=== PATIENT | male | born 1950 | race Caucasian/White ===

== ENCOUNTER → 2016-06-21 | Outpatient (CLI) | payer OTHER | LOC: HEART CORB 06-16 08:45 | DX: R07.2 Precordial pain (principal); I25.10 Atherosclerotic heart disease of native coronary artery without angina pectoris; I95.9 Hypotension, unspecified; I25.5 Ischemic cardiomyopathy | CPT/HCPCS: 78452; A9502; J2785 ==

== ENCOUNTER 2020-06-26 15:35 | Observation (INO) | payer OTHER ==
[~2020-06-26] VITALS: Ht 165.1 cm; Wt 99.8 kg
[2020-06-26 17:03] LABS: HEMOGLOBIN 15.1 gm/dl (14.0-17.5); RED BLOOD COUNT 4.75 M/UL (4.20-5.50); WHITE BLOOD COUNT 9.2 K/UL (4.5-11.0)
[2020-06-26 17:25] LABS: BUN/CREATININE RATIO 17 (0-10)
[2020-06-27] MEDS ORDERED: PRAVASTATIN SOD40 MG PO (10:34)
[2020-06-27] MEDS ORDERED: ISOSORBIDE MON120 MG PO (10:34)
[2020-06-27] MEDS ORDERED: LISINOPRIL5 MG PO (10:35)
[2020-06-27] MEDS ORDERED: ALDACTONE 25MG25 MG PO (10:35)
[2020-06-27] MEDS ORDERED: METOPROLOL SUCC50 MG PO (10:35)
[2020-06-27] MEDS ORDERED: BAYER CHEWABLE81 MG PO (10:36)
[2020-06-27] MEDS ORDERED: CLOPIDOGREL75 MG PO (10:36)
[2020-06-27] MEDS ORDERED: GLUCOPHAGE 500500 MG PO (10:37)
[2020-06-28 03:26] LABS: BUN/CREATININE RATIO 19 (0-10)
[2020-06-28 03:27] LABS: HEMOGLOBIN 17.5 gm/dl (14.0-17.5); RED BLOOD COUNT 5.52 M/UL (4.20-5.50); WHITE BLOOD COUNT 11.8 K/UL (4.5-11.0)
== END 2020-06-28 17:00 | disposition home or self-care (01) ==
LOC: ER1 15:35 → CDU 20:09 → M/S 20:09 → PROG CARE 06-27 16:32
PROVIDERS: Internal Medicine Interventional Cardiology; ADMIT Internal Medicine
DX: I25.110 Atherosclerotic heart disease of native coronary artery with unstable angina pectoris (principal); I11.0 Hypertensive heart disease with heart failure; I50.22 Chronic systolic (congestive) heart failure; I71.4 Abdominal aortic aneurysm, without rupture; E11.9 Type 2 diabetes mellitus without complications; I25.5 Ischemic cardiomyopathy; I63.9 Cerebral infarction, unspecified; F17.210 Nicotine dependence, cigarettes, uncomplicated; I44.7 Left bundle-branch block, unspecified; I25.2 Old myocardial infarction; E78.5 Hyperlipidemia, unspecified; E66.9 Obesity, unspecified; Z95.5 Presence of coronary angioplasty implant and graft; Z79.82 Long term (current) use of aspirin; Z79.4 Long term (current) use of insulin; Z79.899 Other long term (current) drug therapy; Z20.822 Contact with and (suspected) exposure to COVID-19
CPT/HCPCS: 36415; 71045; 80048; 80053; 80061; 82550; 82553; 82962; 83036; 83735; 83874; 84484; 85025; 85027; 85347; 92920; 93005; 99285; C1725; C1760; C1769; C1874; C1887; C9600; G0378; J0461; J1644; J2250; J3010; Q9963; Q9967; U0002

== ENCOUNTER 2020-07-23 17:45 | Observation (INO) | payer OTHER ==
[~2020-07-23] VITALS: Ht 165.1 cm; Wt 101.2 kg
[~2020-07-23 17:45] MED LIST: ALDACTONE 25MG25 MG PO; BAYER CHEWABLE81 MG PO; CLOPIDOGREL75 MG PO; GLUCOPHAGE 500500 MG PO; ISOSORBIDE MON120 MG PO; LISINOPRIL5 MG PO; METOPROLOL SUCC50 MG PO; PRAVASTATIN SOD40 MG PO
[2020-07-23 18:27] LABS: RED BLOOD COUNT 4.72 M/UL (4.20-5.50); WHITE BLOOD COUNT 8.7 K/UL (4.5-11.0)
[2020-07-23 18:49] LABS: BUN/CREATININE RATIO 18 (0-10)
[2020-07-24] MEDS ORDERED: RANEXA500 MG PO (11:40)
--- NOTE | 2020-07-24 12:25 | NUR ---
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 TAKE DIRECTED. CONTINUE ALL MEDS ORDERED. KEEP FOLLOW UP APPOINTMENT WITH FAISAL NEWTON CLINICAL DATA MANAGEMENT DIRECTOR IN [place] SCHEDULED FOR July. VERBALIZED UNDERSTANDING . LARON KEATING R.N
== END 2020-07-24 15:50 | disposition home or self-care (01) ==
LOC: ER1 17:45 → MED SURG 4 20:11 → CDU 20:11 → MED SURG 4 22:44
PROVIDERS: Physician Assistant; ADMIT Internal Medicine
DX: I25.118 Atherosclerotic heart disease of native coronary artery with other forms of angina pectoris (principal); I11.0 Hypertensive heart disease with heart failure; I50.22 Chronic systolic (congestive) heart failure; I44.7 Left bundle-branch block, unspecified; E11.9 Type 2 diabetes mellitus without complications; F17.220 Nicotine dependence, chewing tobacco, uncomplicated; I25.5 Ischemic cardiomyopathy; R00.1 Bradycardia, unspecified; E78.5 Hyperlipidemia, unspecified; E66.9 Obesity, unspecified; Z68.37 Body mass index [BMI] 37.0-37.9, adult; Z20.822 Contact with and (suspected) exposure to COVID-19; Z95.5 Presence of coronary angioplasty implant and graft; Z86.73 Personal history of transient ischemic attack (TIA), and cerebral infarction without residual deficits; Z79.82 Long term (current) use of aspirin; Z79.02 Long term (current) use of antithrombotics/antiplatelets; Z79.84 Long term (current) use of oral hypoglycemic drugs; Z79.899 Other long term (current) drug therapy
CPT/HCPCS: ECHO; 36415; 71045; 80053; 82550; 82553; 82962; 83874; 83880; 84484; 85025; 93005; 93306; 99285; G0378; U0002

== ENCOUNTER 2020-12-16 15:11 | Observation (INO) | payer OTHER ==
[~2020-12-16] VITALS: Ht 165.1 cm; Wt 103.0 kg
[~2020-12-16 15:11] MED LIST changes: -ISOSORBIDE MON120 MG PO; +ISOSORBIDE MONO60 MG PO; -METOPROLOL SUCC50 MG PO; +METOPROLOL TART50 MG PO; +RANEXA500 MG PO
[2020-12-16 16:28] LABS: HEMOGLOBIN 14.6 gm/dl (14.0-17.5); RED BLOOD COUNT 4.58 M/UL (4.20-5.50); WHITE BLOOD COUNT 10.1 K/UL (4.5-11.0)
[2020-12-16 16:55] LABS: BUN/CREATININE RATIO 15 (0-10)
[2020-12-16] MEDS ORDERED: AMITRIPTYLINE H25 MG PO (18:06)
[2020-12-16] MEDS ORDERED: CANDICIDAL CAP1 EACH PO (18:07)
[2020-12-16] MEDS ORDERED: RANEXA500 MG PO (18:07)
--- NOTE | 2020-12-17 01:11 | NUR ---
PT ADMITTED FOR CHEST PAIN. ER NURSE REPORTED PT CHEST XRAY, COVID AND CARDIAC LABS ALL NEGATIVE. WHEN PT ARRIVED HE STATED HE DIDN'T HAVE CHEST PAIN. HE IMMEDIATELY WANTED TO GO SEE HIS ON THE 6TH FLOOR. THIS RN AMBULATED PT TO GET HIS BELONGINGS FROM HIS ON 6TH FLOOR. ASSESSMENT PT DENIES NEEDS, PAIN OR DISCOMFORT. PT IS NPO AND CAME FROM ER WITH A DRINK AND A BAG OF SNACKS WHICH HE IS SITTING IN HIS ROOM AND EATING. HE HAS CHANGED/GOWN PT VITALS TAKEN BY TEMPERATURE CONTROL INSPECTOR AT 2200 BP148/59 HR74 [id number] 96 [id number].
[2020-12-17 05:34] LABS: HEMOGLOBIN 14.5 gm/dl (14.0-17.5); RED BLOOD COUNT 4.64 M/UL (4.20-5.50); WHITE BLOOD COUNT 10.4 K/UL (4.5-11.0)
[2020-12-17 05:51] LABS: BUN/CREATININE RATIO 16 (0-10)
[2020-12-17] MEDS ORDERED: METOPROLOL TART50 MG PO (12:35)
[2020-12-17] MEDS ORDERED: RANEXA500 MG PO (12:35)
== END 2020-12-17 17:15 | disposition home or self-care (01) ==
LOC: ER1 15:11 → CDU 17:14 → M/S 17:14
PROVIDERS: Physician Assistant Medical; ADMIT Internal Medicine
DX: R07.89 Other chest pain (principal); R06.02 Shortness of breath; I25.10 Atherosclerotic heart disease of native coronary artery without angina pectoris; I25.5 Ischemic cardiomyopathy; I11.0 Hypertensive heart disease with heart failure; I50.22 Chronic systolic (congestive) heart failure; E78.5 Hyperlipidemia, unspecified; I44.7 Left bundle-branch block, unspecified; E11.9 Type 2 diabetes mellitus without complications; F17.210 Nicotine dependence, cigarettes, uncomplicated; F17.220 Nicotine dependence, chewing tobacco, uncomplicated; E66.9 Obesity, unspecified; Z68.37 Body mass index [BMI] 37.0-37.9, adult; Z20.822 Contact with and (suspected) exposure to COVID-19; Z95.5 Presence of coronary angioplasty implant and graft; Z86.73 Personal history of transient ischemic attack (TIA), and cerebral infarction without residual deficits; Z79.82 Long term (current) use of aspirin; Z79.02 Long term (current) use of antithrombotics/antiplatelets; Z79.84 Long term (current) use of oral hypoglycemic drugs; Z79.899 Other long term (current) drug therapy
CPT/HCPCS: 36415; 71045; 80053; 82550; 82553; 83735; 83874; 83880; 84100; 84484; 85025; 85027; 85610; 93005; 99285; G0378; J1650; U0002

== ENCOUNTER → 2021-04-20 | Outpatient (CLI) | payer OTHER ==
[~2021-04-20] MED LIST changes: +AMITRIPTYLINE H25 MG PO; +CANDICIDAL CAP1 EACH PO
== END ==
LOC: HEART CORB 10:07
DX: I25.5 Ischemic cardiomyopathy (principal); I25.10 Atherosclerotic heart disease of native coronary artery without angina pectoris; I49.3 Ventricular premature depolarization; I47.2 Ventricular tachycardia; Z95.5 Presence of coronary angioplasty implant and graft; I10 Essential (primary) hypertension; E78.5 Hyperlipidemia, unspecified
CPT/HCPCS: 78452; A9502; J2785

== ENCOUNTER 2021-06-02 06:55 | Outpatient (CLI) | payer OTHER ==
[~2021-06-02] VITALS: Ht 165.1 cm; Wt 101.6 kg
[~2021-06-02 06:55] MED LIST changes: -GLUCOPHAGE 500500 MG PO
[2021-06-02] MEDS ORDERED: ENTRESTO 24 MG1 EACH PO (08:06)
[2021-06-02] MEDS ORDERED: CLINDAMYCIN HC300 MG PO (11:43)
[2021-06-02] MEDS ORDERED: LEVOFLOXACIN500 MG PO (11:43)
[2021-06-02] MEDS ORDERED: HYDROCODON-ACE1 EAC4 PO (11:43)
[2021-06-03] MEDS ORDERED: GLUCOPHAGE 500500 MG PO (10:37)
== END 2021-06-03 09:55 | disposition home or self-care (01) ==
LOC: CATH 06:55 → PROG CARE 06:55 → CATH 08:00 → PROG CARE 12:12 → CATH 06-03 09:55
DX: I50.22 Chronic systolic (congestive) heart failure (principal); I25.5 Ischemic cardiomyopathy; I25.10 Atherosclerotic heart disease of native coronary artery without angina pectoris; I25.2 Old myocardial infarction; I10 Essential (primary) hypertension; F17.220 Nicotine dependence, chewing tobacco, uncomplicated; I44.7 Left bundle-branch block, unspecified; Z95.5 Presence of coronary angioplasty implant and graft; I47.2 Ventricular tachycardia; E78.5 Hyperlipidemia, unspecified; Z79.82 Long term (current) use of aspirin; Z90.49 Acquired absence of other specified parts of digestive tract
CPT/HCPCS: 33225; 33249; 71045; 82962; 93005; 93641; 99152; 99153; C1751; C1769; C1777; C1882; C1898; C1900; J1644; J2250; J3010; J3370; J7040; J7050; J7070; Q9965

== ENCOUNTER → 2021-06-30 | Outpatient (CLI) | payer OTHER ==
[~2021-06-30] MED LIST changes: +CLINDAMYCIN HC300 MG PO; +ENTRESTO 24 MG1 EACH PO; +GLUCOPHAGE 500500 MG PO; +HYDROCODON-ACE1 EAC4 PO; +LEVOFLOXACIN500 MG PO
== END ==
LOC: CT 10:00
DX: Z48.812 Encounter for surgical aftercare following surgery on the circulatory system (principal); Z01.812 Encounter for preprocedural laboratory examination; Z98.890 Other specified postprocedural states; K76.0 Fatty (change of) liver, not elsewhere classified
CPT/HCPCS: 36415; 74175; 82565; Q9967